=== PATIENT | male | born 1990 | race Two or more races ===

== ENCOUNTER 2017-05-08 14:23 | Emergency (ER) | payer OTHER ==
[2017-05-08] MEDS ORDERED: LET GEL TOPICAL 1 EA SYR TP ONE (14:31)
[2017-05-08 14:34] VITALS: BP 148/97; PULSE 97; RESP 16; TEMP 98.1; O2SAT 95
--- NOTE | 2017-05-08 14:52 | EDPHY ---
H & P Time Seen by Provider: 05/08/17 14:28 HPI/ROS: This patient was cutting fruit at home shortly prior to arrival with a knife slipped and caused a laceration to the palmar aspect of the left 3rd finger proximal phalanx region shortly prior to arrival with moderate pain and moderate bleeding that slowed with direct pressure. His mother drove him in by private vehicle for evaluation. ROS: No numbness. Musculoskeletal: No difficulty moving the affected finger Cardiovascular: No pallor to the affected finger. 5 point ROS is otherwise negative. Physical Exam: Physical Exam Vital signs are normal. General: No acute distress Cardiac: Brisk capillary refill is intact throughout. Pulses are 2+ and symmetric in the affected extremity. Skin: There is a 2 cm full-thickness laceration to the palmar aspect of the left 3rd finger proximal phalanx-palmar aspect with subcutaneous tissue evident and mild bleeding but no foreign bodies and no tendon injuries or deeper structures injured on direct examination. Neuro: Alert and oriented x3 with no sensorimotor deficits. Constitutional: Initial Vital Signs Temperature (C) 36.7 C 05/08/17 14:30 Heart Rate 97 05/08/17 14:30 Respiratory Rate 16 05/08/17 14:30 Blood Pressure 148/97 H 05/08/17 14:30 O2 Sat (%) 95 05/08/17 14:30 O2 Delivery Mode Room Air Allergies/Adverse Reactions: ibuprofen Allergy (Verified 05/08/17 14:56) Home Medications: Medication Instructions Recorded Advair 250/50 (*) 05/08/17 Albuterol PRN 05/08/17 Albuterol Sulfate 05/08/17 Flonase Nasal Davis 05/08/17 Spiriva Inhaler (RX) 05/08/17 MDM/Departure - MDM Procedures: The wound is 2 cm. The wound was copiously irrigated with saline. The wound was explored for foreign bodies and none were found. The wound was prepped and draped in the normal sterile fashion. The wound was anesthetized using let solution followed by 1% plain lidocaine, 27 gauge needle-1 mL with good effect. The edges were reapproximated using 4 0 Prolene on a P3 needle-5 running sutures with good hemostasis and cosmesis. The patient tolerated the procedure well. There were no complications. Medications Given: Discontinued Medications Tetracaine/Epinephrine/Lidocaine (Let Gel Topical) 1 ea TP EDNOW ONE Stop: 05/08/17 14:32 Last Admin: 05/08/17 14:37 Dose: 1 ea ED Course/Re-evaluation: Tube gauze dressing applied by our tech and we counseled regarding wound care. Discussion: Uncomplicated simple finger laceration without tendon injury, neurovascular compromise or other concerning findings. - Depart Disposition: Home, Routine, Self-Care Clinical Impression: Finger laceration Qualifiers: Encounter type: initial encounter Finger: middle finger Damage to nail status: without damage Foreign body presence: without foreign body Laterality: left Qualified Code(s): S61.213A - Laceration without foreign body of left middle finger without damage to nail, initial encounter Condition: Good Instructions: Finger Laceration (ED) Additional Instructions: Diagnosis: Finger laceration Plan: Keep the wound clean and dry for the next 2 days, then clean it daily with warm soapy water Ibuprofen and/or Tylenol for pain as needed Return for suture removal in 12 days. Return sooner for redness, discharge or other concerns for infection. Referrals: NONE *PRIMARY CARE P,. [Primary Care Provider] - As per Instructions
== END 2017-05-08 15:08 | disposition home or self-care (01) ==
LOC: CED 14:23
PROC: 0HQGXZZ Repair Left Hand Skin, External Approach (ICD-10-PCS; principal; 2017-05-08)
DX: S61.213A Laceration without foreign body of left middle finger without damage to nail, initial encounter (principal); W26.0XXA Contact with knife, initial encounter; Y92.009 Unspecified place in unspecified non-institutional (private) residence as the place of occurrence of the external cause; Y99.8 Other external cause status; Y93.89 Activity, other specified